=== PATIENT | male | born 1990 | race American Indian/Alaskan Native ===

== ENCOUNTER 2018-12-13 07:32 | Emergency (ER) | payer OTHER ==
--- NOTE | 2018-12-13 09:00 | Emergency Department Report ---
Eye Injury/Foreign Body - HPI Duration: 2 months Eye Location: Right Severity: None Tetanus Status: Up to Date Eye Symptoms: Eye Pain: No, Blurred Vision: No, Eye Redness: No, Grinding/Hammering Metal: No, Used Eye Protection: No, Contact Lens Use: No, Recalls Injury: No, Photophobia: No Other History: -year-old male presents to ED complaining of a small bump on the lower eyelid of his right eye for a couple months now. But since this is tried to hold warm compresses times a day with no resolution of the small bump he denies vision loss, blurry vision, redness or discharge from eye ED Review of Systems ROS: Stated complaint: RT EYE DISCOMFORT Other details as noted in HPI Comment: All other systems reviewed and negative ED Past Medical Hx - Past Medical History Previous Medical History?: No - Surgical History Past Surgical History?: Yes Additional Surgical History: jaw wired - Social History Smoking Status: Never Smoker Substance Use Type: Marijuana - Medications Home Medications: Home Medications Medication Instructions Recorded Confirmed Last Taken Type Ofloxacin [Ocuflox 0.3%] 1 - 2 drop OP Q6HR #5 ml 12/13/18 Unknown Rx Eye Injury Exam - Exam General: Vital signs noted. No distress. Alert and acting appropriately. GENERAL: Alert and oriented x3, no apparent distress, Normal Gait, atraumatic. HEAD: Head is normocephalic and a-traumatic. EYES: Extra ocular muscles are intact. Pupils are equal, round, and reactive to light and accommodation. On erythematous sclera, conjunctiva white and clear. Right lower lid small chalazion/hordeolum, nontender, no pus visualized EARS: symetrical, atraumatic, non tender NOSE: Nose symetrical, Nontender,Nares appeared normal. SKIN: Warm and dry, No lesions, No ulceration or induration present. ED Course Vital Signs 12/13/18 07:45 Temperature 97.8 F Pulse Rate 61 Respiratory 18 Rate Blood Pressure 136/94 O2 Sat by Pulse 100 Oximetry ED Medical Decision Making - Medical Decision Making 27-year-old male presents with right lower lid chalazion Discussed with patient that since it's been her for about 2 months we'll try antibiotic therapy. Discussed patient if antibiotic therapy does not work. He isn't chalazion which might resolve on its own. Discussed referral to the eye doctor in case he needs to be surgically removed. Discussed continued warm compresses 2 times a day. She is intact, vital signs are intact. Critical care attestation.: If time is entered above; I have spent that time in minutes in the direct care of this critically ill patient, excluding procedure time. ED Disposition Clinical Impression: Chalazion of right lower eyelid Disposition: - TO HOME OR SELFCARE Is pt being admited?: No Does the pt Need Aspirin: No Condition: Stable Instructions: Maciej (ED), Lorena (ED) Additional Instructions: Make sure to follow up with the primary care physician as discussed. Take all your medications as you've been prescribed. If you have any worsening symptoms or develop new symptoms please return to ED immediately. Prescriptions: Ofloxacin [Ocuflox 0.3%] 1 - 2 drop OP Q6HR #5 ml Referrals: RICHARD CHAMBERS MD [Primary Care Provider] - 3-5 Days DAILY PEACOCK MD [Staff Physician] - 3-5 Days Forms: Work/School Release Form(ED) Time of Disposition: 09:10
[2018-12-13 09:34] VITALS: BP 134/90
== END 2018-12-13 09:32 | disposition home or self-care (01) ==
LOC: ED 07:32
DX: H00.12 Chalazion right lower eyelid (principal); F12.10 Cannabis abuse, uncomplicated
CPT/HCPCS: 99282

== ENCOUNTER 2019-08-21 09:08 | Emergency (ER) | payer SELFPAY ==
[2019-08-21 09:18] VITALS: BP 140/83
--- NOTE | 2019-08-21 10:38 | Event Note ---
ED Screening Note ED Screening Note: pt presents with a dry cough that began a week ago states he has clear mucus states he has chest discomfort after frequent coughing mild sob no fever no vomiting no diarrhea PMHx asthma childhood, no issues since 11 years old no allergies to meds +marijuana use no tobacco use
--- NOTE | 2019-08-21 10:45 | Emergency Department Report ---
Chief Complaint: Upper Respiratory Infection Stated Complaint: SOB/CHEST TIGHTNESS Time Seen by Provider: 08/21/19 10:34 - HPI History of Present Illness: pt presents with a dry cough that began a week ago states he has clear mucus states he has chest discomfort after frequent coughing and mild sob after coughing no fever no vomiting no diarrhea no hemoptysis no leg swelling PMHx asthma childhood, no issues since 11 years old no allergies to meds +marijuana use no tobacco use vitals are normal I tested pts oxygen saturation in exam room and he is 100% on RA, HR is 67 bpm on exam: non toxic appearing, no acute distress normal TMs and canals bilaterally normal oropharynx normal turbinates bilaterally normal heart sounds, no gallops, rubs, or murmurs normal breath sounds, no w/r/r PERC criteria negative for PE no clinical s/sx of PNA symptoms and examination consistent with viral URI pt is presenting with non medical emergency at this time medical screening examination performed and there is no threat to life or limb discussed the importance of supportive care and oral rehydration with pt will refer pt to a PCP to follow up with in the next 2-3 days for reexamination - Exam Vital Signs: Vital Signs 08/21/19 09:14 Temperature 97.3 F L Pulse Rate 70 Respiratory 16 Rate Blood Pressure 140/83 O2 Sat by Pulse 98 Oximetry MSE screening note: Focused history and physical exam performed. ED Disposition for MSE Clinical Impression: Viral URI with cough Disposition: Z- MED SCREENING EXAM-LEFT Is pt being admited?: No Does the pt Need Aspirin: No Condition: Stable Instructions: Upper Respiratory Infection (ED) Additional Instructions: please increase your fluid intake over the next several days. may take tylenol or ibuprofen for any discomfort. may take robitussin, zyrtec, and use flonase over the counter. may use a humidifier. follow up with a primary care doctor in the next 2-3 days for reexamination. return to the emergency room for any new or worsening symptoms. Referrals: JOSUÉ LUQUE MD [Staff Physician] - 2-3 Days [facility] [Outside] - 2-3 Days [facility] [Outside] - 2-3 Days Print Language: VIETNAMESE
== END 2019-08-21 11:44 | disposition left against medical advice (07) ==
LOC: ED 09:08
DX: J06.9 Acute upper respiratory infection, unspecified (principal)
CPT/HCPCS: 99281